=== PATIENT | male | born 1965 | race Caucasian/White ===

== ENCOUNTER 2020-11-12 15:27 | Inpatient (IN) | payer MEDICARE, OTHER ==
[~2020-11-12] VITALS: Ht 165.1 cm; Wt 71.7 kg
--- NOTE | 2020-11-12 15:40 | NUR ---
[facility] AD[facility]ION. PER REPORT THE PATIENT WAS AGGRESIVE TO STAFF AND RESPIDENT. THE PATIENT IS AAO X3. DENIES PAIN. IN ROOM AIR AND DENIES SOB. RESPIRATION REGULAR AND UNLABORED. THE PATIENT IS IN ER BED #12. WILL CONTINUE TO MONITOR.
--- NOTE | 2020-11-12 15:47 | NUR ---
urine collected and taken it to the lab
[2020-11-12 16:01] LABS: BASOPHILS # (AUTO) 0.1 /CMM (0.0-0.2); EOSINOPHILS % (AUTO) 4.5 % (0.0-6.0); HEMATOCRIT 44 % (39-51); HEMOGLOBIN 14.6 g/dL (13.5-17.5); LYMPHOCYTES # (AUTO) 2.8 /CMM (0.8-4.8); LYMPHOCYTES % (AUTO) 33.8 % (20.0-44.0); MEAN CORPUSCULAR HGB CONC 34 g/dl (31.0-36.0); MEAN CORPUSCULAR VOLUME 97 fL (80-96); MONOCYTES # (AUTO) 1.2 /CMM (0.1-1.30); NEUTROPHILS # (AUTO) 3.9 /CMM (1.8-8.9); NEUTROPHILS % (AUTO) 46.7 % (43.0-81.0); PLATELET COUNT (AUTO) 170 /CMM (150-450); RED BLOOD CELL COUNT(AUTO) 4.51 MIL/uL (4.5-6.0); WHITE BLOOD COUNT (AUTO) 8.3 K/uL (4.3-11.0)
[2020-11-12 16:03] LABS: BILIRUBIN,URINE NEGATIVE (NEGATIVE); COLOR,URINE YELLOW (YELLOW); LEUKOCYTE ESTERASE ,URINE NEGATIVE (NEGATIVE); NITRITE, URINE NEGATIVE (NEGATIVE); PROTEIN,URINE NEGATIVE (NEGATIVE); UGLUCOSE NEGATIVE (NEGATIVE); UROBILINOGEN,URINE 0.2 EU/dL (0.2)
[2020-11-12 16:10] LABS: BACTERIA,URINE None seen /HPF (None Seen); MUCUS,URINE Few /LPF (None Seen); SQUAMOUS EPITHELIAL CELL,UR 0-2 /HPF (None Seen); WBC,URINE 0-2 /HPF (0-3)
[2020-11-12 16:13] LABS: CALCIUM, SERUM 9.3 mg/dL (8.5-10.1); CARBON DIOXIDE 33 mmol/L (21-32); CHLORIDE 103 mmol/L (98-107); CREATININE 0.8 mg/dL (0.6-1.3); GLUCOSE 96 mg/dL (74-106); POTASSIUM 3.7 mmol/L (3.5-5.1); SODIUM SERUM 143 mmol/L (136-145); UREA NITROGEN, BLOOD 24 mg/dL (7-18)
[2020-11-12 16:18] LABS: ALANINE AMINOTRANSFERASE 24 U/L (12-78); ALBUMIN 3.4 g/dL (3.4-5.0); ALCOHOL, BLOOD < 3 mg/dL (0-0); ALKALINE PHOSPHATASE 107 U/L (46-116); ASPARTATE AMINOTRANSFERASE 11 U/L (15-37); BILIRUBIN,DIRECT 0.1 mg/dL (0.0-0.2); BILIRUBIN,TOTAL 0.2 mg/dL (0.2-1.0)
[2020-11-12 16:20] LABS: ACETAMINOPHEN 0 ug/ml (10-30)
--- NOTE | 2020-11-12 16:26 | NUR ---
THE PATIENT IS CALM AND COOPERATIVE AT THIS TIME. WILL CONTINUE TO MONITOR.
--- NOTE | 2020-11-12 17:10 | NUR ---
ART, JOCKEY AGENT AT FOR EVAL.
--- NOTE | 2020-11-12 17:27 | NUR ---
BED 216A
[2020-11-12] MEDS ORDERED: TIOT18CA3 IH (17:55)
[2020-11-12] MEDS ORDERED: GUAI-755 PO (17:55)
[2020-11-12] MEDS ORDERED: GABA-532 PO (17:55)
[2020-11-12] MEDS ORDERED: MEMA10TA PO (17:55)
[2020-11-12] MEDS ORDERED: ASCO500C17 PO (17:55)
[2020-11-12] MEDS ORDERED: SERT-438 PO (17:55)
[2020-11-12] MEDS ORDERED: DIVA250T PO (17:55)
[2020-11-12] MEDS ORDERED: MIDO5TAB4 PO (17:55)
[2020-11-12] MEDS ORDERED: ASPI-1420 PO (17:55)
[2020-11-12] MEDS ORDERED: ACET325T53 PO (17:55)
[2020-11-12] MEDS ORDERED: BENZ1TAB7 PO (17:55)
[2020-11-12] MEDS ORDERED: POLY17PO4 PO (17:55)
[2020-11-12] MEDS ORDERED: LACT1CAP26 PO (17:55)
[2020-11-12] MEDS ORDERED: HALO5TAB PO (17:55)
[2020-11-12] MEDS ORDERED: ATOR40TA PO (17:55)
[2020-11-12] MEDS ORDERED: POTA10CA43 PO (17:55)
[2020-11-12] MEDS ORDERED: ALBU0.633 IH (17:55)
[2020-11-12] MEDS ORDERED: MULT-439 PO (17:55)
[2020-11-12] MEDS ORDERED: SIME80TA15 PO (17:55)
[2020-11-12] MEDS ORDERED: DOCU-141 PO (17:55)
[2020-11-12] MEDS ORDERED: ONDA4TAB5 PO (17:55)
[2020-11-12] MEDS ORDERED: THIA100T74 PO (17:55)
[2020-11-12] MEDS ORDERED: LORA-259 PO (17:55)
[2020-11-12] MEDS ORDERED: MELA5TAB PO (17:55)
[2020-11-12] MEDS ORDERED: CETI-90 PO (17:55)
[2020-11-12] MEDS ORDERED: FURO-145 PO (17:55)
[2020-11-12] MEDS ORDERED: LINA145C PO (17:55)
[2020-11-12] MEDS ORDERED: FAMO20TA8 PO (17:55)
[2020-11-12] MEDS ORDERED: DONE10TA44 PO (17:55)
[2020-11-12] MEDS ORDERED: FINA5TAB3 PO (17:55)
[2020-11-12] MEDS ORDERED: MONT10TA22 PO (17:55)
[2020-11-12] MEDS ORDERED: CHOL200013 PO (17:55)
--- NOTE | 2020-11-12 18:05 | NUR ---
PATIENT TRANSFERRED TO ROOM 216A.
[2020-11-12] MEDS ORDERED: ACETAMINOPHEN 325 MG TABLET PO PRN ×2 (18:30)
[2020-11-12] MEDS ORDERED: TEMAZEPAM 7.5 MG CAPSULE PO PRN (18:30)
[2020-11-12] MEDS ORDERED: LORAZEPAM 0.5 MG TABLET PO PRN (18:30)
[2020-11-12] MEDS ORDERED: BLOOD SUGAR DIAGNOSTIC 1 EACH STRIP IN ONE (18:30)
[2020-11-12] MEDS ORDERED: MAGNESIUM HYDROXIDE 30 ML UDC PO PRN (18:30)
[2020-11-12] MEDS ORDERED: POLYETHYLENE GLYCOL 3350 17 GM POWD.PACK PO PRN (18:30)
[2020-11-12] MEDS ORDERED: MAG HYDROX/AL HYDROX/SIMETH 30 ML UDC PO PRN (18:30)
[2020-11-12 18:35] VITALS: BP 147/77
[2020-11-12 18:42] LABS: CHOLESTEROL 140 mg/dL (<200); HDL CHOLESTEROL 44 mg/dL (40-60); LDL 68 mg/dL (0-99); TRIGLYCERIDES 316 mg/dL (30-150)
[2020-11-12 18:43] LABS: VALPROIC ACID 34 ug/mL (50-100)
--- NOTE | 2020-11-12 18:43 | NUR ---
Pt. arrived in the unit via hospital bed from ER and wheeled by ER staff. Pt. brought in to room 216A, contraband done and v/s taken. Dr. Kelly made aware of the admission and with orders. Dr. Jaeger came in the unit and examined the pt. Will endorse to the incoming nurse for the completion of the admission.
[2020-11-12 20:00] VITALS: BP 124/86
[2020-11-12 20:05] VITALS: BP 124/86
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
[2020-11-12] MEDS: ALBUTEROL HALF STRENGTH 1.25 MG/3 ML VIAL.NEB NEB PRN (20:51)
[2020-11-12] MEDS: IPRATROPIUM NEB FS 0.5 MG/2.5 ML AMPUL.NEB IH SCH (20:52)
[2020-11-12] MEDS: DONEPEZIL 5 MG TABLET PO SCH (21:17)
[2020-11-12] MEDS: ATORVASTATIN 40 MG TABLET PO SCH (21:18)
[2020-11-12] MEDS: MONTELUKAST SODIUM (10MG) 10 MG TABLET PO SCH (21:18)
[2020-11-13] MEDS: IPRATROPIUM NEB FS 0.5 MG/2.5 ML AMPUL.NEB IH SCH ×4 (01:30→20:33)
--- NOTE | 2020-11-13 04:15 | NUR ---
[facility] RN NOTE PATIENT IS SLEEPING COMFORTABLY. NO BEHAVIOR EPISODES NOTED.
[2020-11-13 07:04] LABS: ALBUMIN 3.2 g/dL (3.4-5.0); BILIRUBIN,TOTAL 0.3 mg/dL (0.2-1.0); CALCIUM, SERUM 8.9 mg/dL (8.5-10.1); CREATININE 0.7 mg/dL (0.6-1.3); TOTAL PROTEIN, SERUM 6.5 g/dL (6.4-8.2)
[2020-11-13 07:09] LABS: THYROID STIMULATING HORMONE 2.215 uIU/mL (0.358-3.74)
--- NOTE | 2020-11-13 07:12 | NUR ---
RN NOTE: FAMILY NOTIFIED CALLED KRISTIN MCLAUGHLIN (NIECE) AT [phone] & LEFT A MESSAGE REGARDING PATIENT'S ADMISSION AT [facility].
[2020-11-13 08:00] VITALS: BP 133/96
[2020-11-13] MEDS: DOCUSATE SODIUM 100 MG CAPSULE PO SCH ×2 (08:29→16:27)
[2020-11-13] MEDS: MEMANTINE HCL 5 MG TABLET PO SCH ×2 (08:29→16:27)
[2020-11-13] MEDS: ASPIRIN EC 81 MG TABLET.DR PO SCH (08:29)
[2020-11-13] MEDS: MULTIVIT W/MINERALS 1 TAB TABLET PO SCH (08:29)
[2020-11-13] MEDS: THIAMINE HCL 100 MG TABLET PO SCH ×2 (08:29→16:27)
[2020-11-13] MEDS: FUROSEMIDE 20 MG TABLET PO SCH (08:29)
[2020-11-13] MEDS: DIVALPROEX SODIUM 250 MG TABLET.DR PO SCH ×2 (08:29→12:23)
[2020-11-13] MEDS: FINASTERIDE (5 MG) 5 MG TABLET PO SCH (08:29)
[2020-11-13] MEDS: GABAPENTIN 100 MG CAPSULE PO SCH ×3 (08:29→16:27)
[2020-11-13] MEDS: FAMOTIDINE (20 MG) 20 MG TABLET PO SCH ×2 (08:29→16:27)
[2020-11-13] MEDS: CHOLECALCIFEROL 1,000 UNIT TABLET (VIT D3) PO SCH (08:29)
[2020-11-13] MEDS: SIMETHICONE 80 MG TAB.CHEW PO SCH ×3 (08:36→16:33)
[2020-11-13] MEDS ORDERED: BENZTROPINE MESYLATE (1 MG) 1 MG TABLET PO SCH (09:00)
[2020-11-13] MEDS ORDERED: GABAPENTIN 100 MG CAPSULE PO SCH (09:00)
[2020-11-13 09:16] LABS: CREATININE 0.7 mg/dL (0.6-1.3)
[2020-11-13 16:00] VITALS: BP 123/94
[2020-11-13] MEDS: BENZTROPINE MESYLATE (1 MG) 1 MG TABLET PO SCH (16:27)
[2020-11-13] MEDS: HALOPERIDOL 5 MG TABLET PO SCH (16:27)
[2020-11-13 20:04] VITALS: BP 142/95
[2020-11-13] MEDS: DONEPEZIL 5 MG TABLET PO SCH (21:29)
[2020-11-13] MEDS: DIVALPROEX SODIUM 500 MG TABLET.DR PO SCH (21:29)
[2020-11-13] MEDS: ATORVASTATIN 40 MG TABLET PO SCH (21:29)
[2020-11-13] MEDS: MONTELUKAST SODIUM (10MG) 10 MG TABLET PO SCH (21:29)
[2020-11-14] MEDS: IPRATROPIUM NEB FS 0.5 MG/2.5 ML AMPUL.NEB IH SCH ×4 (01:30→20:09)
--- NOTE | 2020-11-14 06:46 | NUR ---
[facility] RN CLOSING NOTES: PATIENT SLEEPING COMFORTABLY IN BED. PATIENT SLEPT 9HR THIS SHIFT. PATIENT WAS MED COMPLIANT THIS SHIFT. NO S/S OF DISTRESS. RESPIRATION EVEN AND UNLABORED WITH EQUAL RISE AND FALL OF THE CHEST ON ROOM AIR. ALL PATIENT CARE NEEDS HAVE BEEN MET ANTICIPATED. BED IN LOWEST POSITION AND LOCKED WITH 2 SIDE RAILS UP. WILL CONTINUE TO MONITOR FOR SAFETY, MOOD AND BEHAVIOR AND ENDORSE TO AM SHIFT.
[2020-11-14 08:00] VITALS: BP 132/93
[2020-11-14] MEDS: GABAPENTIN 100 MG CAPSULE PO SCH ×3 (08:40→17:39)
[2020-11-14] MEDS: CHOLECALCIFEROL 1,000 UNIT TABLET (VIT D3) PO SCH (08:40)
[2020-11-14] MEDS: FAMOTIDINE (20 MG) 20 MG TABLET PO SCH ×2 (08:40→17:39)
[2020-11-14] MEDS: HALOPERIDOL 5 MG TABLET PO SCH ×2 (08:40→17:40)
[2020-11-14] MEDS: THIAMINE HCL 100 MG TABLET PO SCH ×2 (08:40→17:39)
[2020-11-14] MEDS: BENZTROPINE MESYLATE (1 MG) 1 MG TABLET PO SCH ×2 (08:41→17:40)
[2020-11-14] MEDS: ASPIRIN EC 81 MG TABLET.DR PO SCH (08:41)
[2020-11-14] MEDS: DOCUSATE SODIUM 100 MG CAPSULE PO SCH ×2 (08:41→17:40)
[2020-11-14] MEDS: MEMANTINE HCL 5 MG TABLET PO SCH ×2 (08:41→17:40)
[2020-11-14] MEDS: SIMETHICONE 80 MG TAB.CHEW PO SCH ×3 (08:41→17:42)
[2020-11-14] MEDS: DIVALPROEX SODIUM 500 MG TABLET.DR PO SCH ×2 (08:41→21:27)
[2020-11-14] MEDS: FUROSEMIDE 20 MG TABLET PO SCH (08:41)
[2020-11-14] MEDS: MULTIVIT W/MINERALS 1 TAB TABLET PO SCH (08:42)
[2020-11-14] MEDS: FINASTERIDE (5 MG) 5 MG TABLET PO SCH (08:42)
[2020-11-14 16:00] VITALS: BP 125/84
[2020-11-14] MEDS: ALBUTEROL HALF STRENGTH 1.25 MG/3 ML VIAL.NEB NEB PRN (20:10)
[2020-11-14 20:25] VITALS: BP 120/91
[2020-11-14] MEDS: MONTELUKAST SODIUM (10MG) 10 MG TABLET PO SCH (21:27)
[2020-11-14] MEDS: DONEPEZIL 5 MG TABLET PO SCH (21:27)
[2020-11-14] MEDS: ATORVASTATIN 40 MG TABLET PO SCH (21:27)
[2020-11-15] MEDS: IPRATROPIUM NEB FS 0.5 MG/2.5 ML AMPUL.NEB IH SCH ×4 (01:30→20:27)
--- NOTE | 2020-11-15 06:34 | NUR ---
[facility] RN CLOSING NOTES: PATIENT IS CURRENTLY SLEEPING. PATIENT SLEPT 8HR THIS SHIFT. WEEKLY SKIN ASSESSMENT DONE, PICTURES TAKEN AND PLACED IN PATIENT CHART. PATIENT WAS MED COMPLIANT THIS SHIFT. NO S/S OF DISTRESS. RESPIRATION EVEN AND UNLABORED WITH EQUAL RISE AND FALL OF THE CHEST ON ROOM AIR. ALL PATIENT CARE NEEDS HAVE BEEN MET ANTICIPATED. BED IN LOWEST POSITION AND LOCKED WITH 2 SIDE RAILS UP. WILL CONTINUE TO MONITOR FOR SAFETY, MOOD AND BEHAVIOR AND ENDORSE TO AM SHIFT.
[2020-11-15] MEDS: ALBUTEROL HALF STRENGTH 1.25 MG/3 ML VIAL.NEB NEB PRN (07:36)
[2020-11-15 08:00] VITALS: BP 142/87
[2020-11-15] MEDS: DOCUSATE SODIUM 100 MG CAPSULE PO SCH ×2 (08:57→16:54)
[2020-11-15] MEDS: MULTIVIT W/MINERALS 1 TAB TABLET PO SCH (08:57)
[2020-11-15] MEDS: HALOPERIDOL 5 MG TABLET PO SCH ×2 (08:57→16:55)
[2020-11-15] MEDS: BENZTROPINE MESYLATE (1 MG) 1 MG TABLET PO SCH ×2 (08:57→16:54)
[2020-11-15] MEDS: DIVALPROEX SODIUM 500 MG TABLET.DR PO SCH ×2 (08:57→21:14)
[2020-11-15] MEDS: GABAPENTIN 100 MG CAPSULE PO SCH ×3 (08:57→16:55)
[2020-11-15] MEDS: FINASTERIDE (5 MG) 5 MG TABLET PO SCH (08:57)
[2020-11-15] MEDS: FAMOTIDINE (20 MG) 20 MG TABLET PO SCH ×2 (08:58→16:54)
[2020-11-15] MEDS: FUROSEMIDE 20 MG TABLET PO SCH (08:58)
[2020-11-15] MEDS: THIAMINE HCL 100 MG TABLET PO SCH ×2 (08:58→16:54)
[2020-11-15] MEDS: ASPIRIN EC 81 MG TABLET.DR PO SCH (08:58)
[2020-11-15] MEDS: MEMANTINE HCL 5 MG TABLET PO SCH ×2 (08:58→16:54)
[2020-11-15] MEDS: CHOLECALCIFEROL 1,000 UNIT TABLET (VIT D3) PO SCH (09:00)
[2020-11-15] MEDS: SIMETHICONE 80 MG TAB.CHEW PO SCH ×3 (09:02→16:58)
[2020-11-15 16:39] VITALS: BP 114/87
[2020-11-15] MEDS: ATORVASTATIN 40 MG TABLET PO SCH (21:14)
[2020-11-15] MEDS: MONTELUKAST SODIUM (10MG) 10 MG TABLET PO SCH (21:14)
[2020-11-15] MEDS: DONEPEZIL 5 MG TABLET PO SCH (21:15)
[2020-11-16] MEDS: IPRATROPIUM NEB FS 0.5 MG/2.5 ML AMPUL.NEB IH SCH ×4 (01:30→20:45)
[2020-11-16 08:00] VITALS: BP 140/80
[2020-11-16] MEDS: DOCUSATE SODIUM 100 MG CAPSULE PO SCH ×2 (09:00→17:00)
--- NOTE | 2020-11-16 09:19 | NUR ---
Initial Discharge Plan: The pt. currently resides at [facility] [[address] [facility] [address]; [phone]]. Per pt. he would like to return there once ready for discharge. SW called [facility] and spoke to admission who stated that the pt. is welcome to return when ready for discharge. Facility is requesting clinicals, psychiatry notes, behavioral notes when pt. is close to discharge. Noted. SS will follow up accordingly.
[2020-11-16] MEDS: FAMOTIDINE (20 MG) 20 MG TABLET PO SCH ×2 (09:53→17:42)
[2020-11-16] MEDS: THIAMINE HCL 100 MG TABLET PO SCH ×2 (09:53→17:43)
[2020-11-16] MEDS: FUROSEMIDE 20 MG TABLET PO SCH (09:53)
[2020-11-16] MEDS: HALOPERIDOL 5 MG TABLET PO SCH ×2 (09:53→17:42)
[2020-11-16] MEDS: CHOLECALCIFEROL 1,000 UNIT TABLET (VIT D3) PO SCH (09:53)
[2020-11-16] MEDS: DIVALPROEX SODIUM 500 MG TABLET.DR PO SCH ×2 (09:54→21:41)
[2020-11-16] MEDS: MEMANTINE HCL 5 MG TABLET PO SCH ×2 (09:54→17:43)
[2020-11-16] MEDS: ASPIRIN EC 81 MG TABLET.DR PO SCH (09:54)
[2020-11-16] MEDS: BENZTROPINE MESYLATE (1 MG) 1 MG TABLET PO SCH ×2 (09:54→17:42)
[2020-11-16] MEDS: FINASTERIDE (5 MG) 5 MG TABLET PO SCH (09:54)
[2020-11-16] MEDS: SIMETHICONE 80 MG TAB.CHEW PO SCH ×3 (09:59→17:50)
[2020-11-16] MEDS: MULTIVIT W/MINERALS 1 TAB TABLET PO SCH (10:00)
[2020-11-16] MEDS: GABAPENTIN 100 MG CAPSULE PO SCH ×3 (10:00→17:43)
--- NOTE | 2020-11-16 14:39 | NUR ---
Family Contact: Madhavi ([phone]), pts cousin, called the SW and informed the SW that she wants the pt to return to [facility] so that the [facility] can place him in a Skilled Nursing.
[2020-11-16 16:00] VITALS: BP 132/78
[2020-11-16 21:16] VITALS: BP 166/105
[2020-11-16] MEDS: DONEPEZIL 5 MG TABLET PO SCH (21:41)
[2020-11-16] MEDS: ATORVASTATIN 40 MG TABLET PO SCH (21:41)
[2020-11-16] MEDS: MONTELUKAST SODIUM (10MG) 10 MG TABLET PO SCH (21:42)
[2020-11-16] MEDS: ALBUTEROL HALF STRENGTH 1.25 MG/3 ML VIAL.NEB NEB PRN (22:39)
[2020-11-17] MEDS: IPRATROPIUM NEB FS 0.5 MG/2.5 ML AMPUL.NEB IH SCH ×4 (01:03→20:55)
[2020-11-17] MEDS: SIMETHICONE 80 MG TAB.CHEW PO SCH ×3 (08:00→16:44)
[2020-11-17] MEDS: THIAMINE HCL 100 MG TABLET PO SCH ×2 (08:01→16:38)
[2020-11-17] MEDS: ASPIRIN EC 81 MG TABLET.DR PO SCH (08:01)
[2020-11-17] MEDS: BENZTROPINE MESYLATE (1 MG) 1 MG TABLET PO SCH ×2 (08:01→16:38)
[2020-11-17] MEDS: DIVALPROEX SODIUM 500 MG TABLET.DR PO SCH ×2 (08:01→21:10)
[2020-11-17] MEDS: MEMANTINE HCL 5 MG TABLET PO SCH ×2 (08:01→16:38)
[2020-11-17] MEDS: FUROSEMIDE 20 MG TABLET PO SCH (08:01)
[2020-11-17] MEDS: HALOPERIDOL 5 MG TABLET PO SCH ×2 (08:01→16:44)
[2020-11-17] MEDS: FAMOTIDINE (20 MG) 20 MG TABLET PO SCH ×2 (08:01→16:38)
[2020-11-17] MEDS: FINASTERIDE (5 MG) 5 MG TABLET PO SCH (08:01)
[2020-11-17] MEDS: CHOLECALCIFEROL 1,000 UNIT TABLET (VIT D3) PO SCH (08:01)
[2020-11-17] MEDS: MULTIVIT W/MINERALS 1 TAB TABLET PO SCH (08:01)
[2020-11-17] MEDS: DOCUSATE SODIUM 100 MG CAPSULE PO SCH ×2 (08:02→16:44)
[2020-11-17] MEDS: GABAPENTIN 100 MG CAPSULE PO SCH ×3 (08:09→16:38)
[2020-11-17] MEDS: ALBUTEROL HALF STRENGTH 1.25 MG/3 ML VIAL.NEB NEB PRN (13:53)
[2020-11-17 16:00] VITALS: BP 97/73
[2020-11-17 21:07] VITALS: BP 97/60
[2020-11-17] MEDS: MONTELUKAST SODIUM (10MG) 10 MG TABLET PO SCH (21:10)
[2020-11-17] MEDS: ATORVASTATIN 40 MG TABLET PO SCH (21:10)
[2020-11-17] MEDS: DONEPEZIL 5 MG TABLET PO SCH (21:10)
[2020-11-18] MEDS: IPRATROPIUM NEB FS 0.5 MG/2.5 ML AMPUL.NEB IH SCH ×4 (01:30→20:14)
[2020-11-18 08:00] VITALS: BP 126/76
[2020-11-18] MEDS: ALBUTEROL HALF STRENGTH 1.25 MG/3 ML VIAL.NEB NEB PRN (08:00)
[2020-11-18] MEDS: MULTIVIT W/MINERALS 1 TAB TABLET PO SCH (08:01)
[2020-11-18] MEDS: MEMANTINE HCL 5 MG TABLET PO SCH ×2 (08:01→16:23)
[2020-11-18] MEDS: FINASTERIDE (5 MG) 5 MG TABLET PO SCH (08:02)
[2020-11-18] MEDS: GABAPENTIN 100 MG CAPSULE PO SCH ×3 (08:02→16:23)
[2020-11-18] MEDS: THIAMINE HCL 100 MG TABLET PO SCH ×2 (08:02→16:23)
[2020-11-18] MEDS: ASPIRIN EC 81 MG TABLET.DR PO SCH (08:02)
[2020-11-18] MEDS: HALOPERIDOL 5 MG TABLET PO SCH ×2 (08:02→16:23)
[2020-11-18] MEDS: BENZTROPINE MESYLATE (1 MG) 1 MG TABLET PO SCH ×2 (08:02→16:23)
[2020-11-18] MEDS: FAMOTIDINE (20 MG) 20 MG TABLET PO SCH ×2 (08:02→16:23)
[2020-11-18] MEDS: DIVALPROEX SODIUM 500 MG TABLET.DR PO SCH ×2 (08:02→21:46)
[2020-11-18] MEDS: CHOLECALCIFEROL 1,000 UNIT TABLET (VIT D3) PO SCH (08:02)
[2020-11-18] MEDS: FUROSEMIDE 20 MG TABLET PO SCH (08:02)
[2020-11-18] MEDS: DOCUSATE SODIUM 100 MG CAPSULE PO SCH ×2 (08:03→16:24)
[2020-11-18] MEDS: SIMETHICONE 80 MG TAB.CHEW PO SCH ×3 (08:08→16:23)
--- NOTE | 2020-11-18 14:00 | NUR ---
Probable Cause Hearing: Pts [phone] hold was upheld for grave disability.
[2020-11-18 16:00] VITALS: BP 103/76
[2020-11-18 20:59] VITALS: BP 122/73
[2020-11-18] MEDS: DONEPEZIL 5 MG TABLET PO SCH (21:46)
[2020-11-18] MEDS: MONTELUKAST SODIUM (10MG) 10 MG TABLET PO SCH (21:46)
[2020-11-18] MEDS: ATORVASTATIN 40 MG TABLET PO SCH (21:46)
[2020-11-19] MEDS: IPRATROPIUM NEB FS 0.5 MG/2.5 ML AMPUL.NEB IH SCH ×4 (01:04→19:56)
[2020-11-19 08:00] VITALS: BP 117/65
[2020-11-19] MEDS: THIAMINE HCL 100 MG TABLET PO SCH ×2 (08:22→16:04)
[2020-11-19] MEDS: MEMANTINE HCL 5 MG TABLET PO SCH ×2 (08:22→16:04)
[2020-11-19] MEDS: CHOLECALCIFEROL 1,000 UNIT TABLET (VIT D3) PO SCH (08:22)
[2020-11-19] MEDS: MULTIVIT W/MINERALS 1 TAB TABLET PO SCH (08:22)
[2020-11-19] MEDS: FINASTERIDE (5 MG) 5 MG TABLET PO SCH (08:22)
[2020-11-19] MEDS: SIMETHICONE 80 MG TAB.CHEW PO SCH ×3 (08:22→16:04)
[2020-11-19] MEDS: HALOPERIDOL 5 MG TABLET PO SCH ×2 (08:22→16:04)
[2020-11-19] MEDS: ASPIRIN EC 81 MG TABLET.DR PO SCH (08:22)
[2020-11-19] MEDS: FAMOTIDINE (20 MG) 20 MG TABLET PO SCH ×2 (08:22→16:04)
[2020-11-19] MEDS: DIVALPROEX SODIUM 500 MG TABLET.DR PO SCH ×2 (08:22→21:15)
[2020-11-19] MEDS: FUROSEMIDE 20 MG TABLET PO SCH (08:22)
[2020-11-19] MEDS: DOCUSATE SODIUM 100 MG CAPSULE PO SCH ×2 (08:23→16:05)
[2020-11-19] MEDS: BENZTROPINE MESYLATE (1 MG) 1 MG TABLET PO SCH ×2 (08:23→16:04)
[2020-11-19] MEDS: GABAPENTIN 100 MG CAPSULE PO SCH ×3 (08:23→16:04)
--- NOTE | 2020-11-19 09:00 | NUR ---
RN NOTE- PT VISIBLE ON UNIT, INCONGRUENT, BRIGHT AFFECT INTRUSIVE, REQUIRES SPACE BOUNDARIES SET, MED COMPLIANT DIRECTABLE INTERACTIVE
[2020-11-19 16:00] VITALS: BP 122/61
[2020-11-19 19:53] VITALS: BP 113/75
[2020-11-19] MEDS: ALBUTEROL HALF STRENGTH 1.25 MG/3 ML VIAL.NEB NEB PRN (19:55)
[2020-11-19 20:30] VITALS: BP 113/75
[2020-11-19] MEDS: ATORVASTATIN 40 MG TABLET PO SCH (21:47)
[2020-11-19] MEDS: DONEPEZIL 5 MG TABLET PO SCH (21:47)
[2020-11-19] MEDS: MONTELUKAST SODIUM (10MG) 10 MG TABLET PO SCH (21:47)
[2020-11-20] MEDS: IPRATROPIUM NEB FS 0.5 MG/2.5 ML AMPUL.NEB IH SCH ×4 (02:15→20:46)
[2020-11-20 08:00] VITALS: BP 129/82
[2020-11-20] MEDS: HALOPERIDOL 5 MG TABLET PO SCH ×2 (08:19→16:16)
[2020-11-20] MEDS: MULTIVIT W/MINERALS 1 TAB TABLET PO SCH (08:19)
[2020-11-20] MEDS: CHOLECALCIFEROL 1,000 UNIT TABLET (VIT D3) PO SCH (08:19)
[2020-11-20] MEDS: SIMETHICONE 80 MG TAB.CHEW PO SCH ×3 (08:19→16:16)
[2020-11-20] MEDS: FINASTERIDE (5 MG) 5 MG TABLET PO SCH (08:19)
[2020-11-20] MEDS: GABAPENTIN 100 MG CAPSULE PO SCH ×3 (08:19→16:16)
[2020-11-20] MEDS: DIVALPROEX SODIUM 500 MG TABLET.DR PO SCH ×2 (08:19→21:11)
[2020-11-20] MEDS: BENZTROPINE MESYLATE (1 MG) 1 MG TABLET PO SCH ×2 (08:19→16:16)
[2020-11-20] MEDS: ASPIRIN EC 81 MG TABLET.DR PO SCH (08:19)
[2020-11-20] MEDS: FUROSEMIDE 20 MG TABLET PO SCH (08:19)
[2020-11-20] MEDS: THIAMINE HCL 100 MG TABLET PO SCH ×2 (08:19→16:16)
[2020-11-20] MEDS: FAMOTIDINE (20 MG) 20 MG TABLET PO SCH ×2 (08:19→16:16)
[2020-11-20] MEDS: MEMANTINE HCL 5 MG TABLET PO SCH ×2 (08:19→16:16)
[2020-11-20] MEDS: DOCUSATE SODIUM 100 MG CAPSULE PO SCH ×2 (08:20→16:16)
[2020-11-20 16:00] VITALS: BP 100/79
[2020-11-20 19:55] VITALS: BP 143/98
[2020-11-20 20:39] VITALS: BP 143/98
[2020-11-20] MEDS: ALBUTEROL HALF STRENGTH 1.25 MG/3 ML VIAL.NEB NEB PRN (20:46)
[2020-11-20] MEDS: ATORVASTATIN 40 MG TABLET PO SCH (21:32)
[2020-11-20] MEDS: MONTELUKAST SODIUM (10MG) 10 MG TABLET PO SCH (21:32)
[2020-11-20] MEDS: DONEPEZIL 5 MG TABLET PO SCH (21:32)
[2020-11-21] MEDS: IPRATROPIUM NEB FS 0.5 MG/2.5 ML AMPUL.NEB IH SCH ×4 (02:10→20:20)
[2020-11-21 07:43] LABS: BASOPHILS % (AUTO) 0.2 % (0.0-2.0); HEMATOCRIT 43 % (39-51); LYMPHOCYTES # (AUTO) 2.5 /CMM (0.8-4.8); LYMPHOCYTES % (AUTO) 16.7 % (20.0-44.0); MEAN CORPUSCULAR HGB CONC 33 g/dl (31.0-36.0); MEAN CORPUSCULAR VOLUME 97 fL (80-96); MONOCYTES # (AUTO) 0.9 /CMM (0.1-1.30); MONOCYTES % (AUTO) 6.4 % (2.0-12.0); NEUTROPHILS % (AUTO) 74.7 % (43.0-81.0); PLATELET COUNT (AUTO) 137 /CMM (150-450); RED BLOOD CELL COUNT(AUTO) 4.43 MIL/uL (4.5-6.0); WHITE BLOOD COUNT (AUTO) 14.7 K/uL (4.3-11.0)
[2020-11-21 08:00] VITALS: BP 98/74
[2020-11-21 08:28] LABS: ALBUMIN 3.1 g/dL (3.4-5.0); BILIRUBIN,TOTAL 0.6 mg/dL (0.2-1.0); CREATININE 0.8 mg/dL (0.6-1.3); POTASSIUM 4.6 mmol/L (3.5-5.1); TOTAL PROTEIN, SERUM 6.7 g/dL (6.4-8.2)
[2020-11-21] MEDS: DOCUSATE SODIUM 100 MG CAPSULE PO SCH ×2 (09:00→16:56)
[2020-11-21] MEDS: FAMOTIDINE (20 MG) 20 MG TABLET PO SCH ×2 (09:35→16:56)
[2020-11-21] MEDS: ASPIRIN EC 81 MG TABLET.DR PO SCH (09:35)
[2020-11-21] MEDS: THIAMINE HCL 100 MG TABLET PO SCH ×2 (09:35→17:00)
[2020-11-21] MEDS: SIMETHICONE 80 MG TAB.CHEW PO SCH ×3 (09:35→16:56)
[2020-11-21] MEDS: FUROSEMIDE 20 MG TABLET PO SCH (09:35)
[2020-11-21] MEDS: BENZTROPINE MESYLATE (1 MG) 1 MG TABLET PO SCH ×2 (09:35→16:56)
[2020-11-21] MEDS: GABAPENTIN 100 MG CAPSULE PO SCH ×3 (09:35→16:56)
[2020-11-21] MEDS: HALOPERIDOL 5 MG TABLET PO SCH ×2 (09:36→16:56)
[2020-11-21] MEDS: MEMANTINE HCL 5 MG TABLET PO SCH ×2 (09:36→16:56)
[2020-11-21] MEDS: MULTIVIT W/MINERALS 1 TAB TABLET PO SCH (09:36)
[2020-11-21] MEDS: CHOLECALCIFEROL 1,000 UNIT TABLET (VIT D3) PO SCH (09:36)
[2020-11-21] MEDS: DIVALPROEX SODIUM 500 MG TABLET.DR PO SCH ×2 (09:39→21:12)
[2020-11-21] MEDS: FINASTERIDE (5 MG) 5 MG TABLET PO SCH (09:40)
[2020-11-21 16:00] VITALS: BP 112/77
[2020-11-21 20:49] VITALS: BP 97/53
[2020-11-21] MEDS: ATORVASTATIN 40 MG TABLET PO SCH (21:12)
[2020-11-21] MEDS: DONEPEZIL 5 MG TABLET PO SCH (21:12)
[2020-11-21] MEDS: MONTELUKAST SODIUM (10MG) 10 MG TABLET PO SCH (21:12)
[2020-11-22] MEDS: IPRATROPIUM NEB FS 0.5 MG/2.5 ML AMPUL.NEB IH SCH ×4 (01:30→19:58)
--- NOTE | 2020-11-22 06:41 | NUR ---
[facility] RN CLOSING NOTES: PATIENT SLEEPING COMFORTABLY IN BED. PATIENT SLEPT 8HR THIS SHIFT. WEEKLY SKIN ASSESSMENT DONE, SKIN INTACT. NO C/O PAIN. NO S/S OF DISTRESS. RESPIRATION EVEN AND UNLABORED WITH EQUAL RISE AND FALL OF THE CHEST ON ROOM AIR. ALL PATIENT CARE NEEDS HAVE BEEN MET ANTICIPATED. BED IN LOWEST POSITION AND LOCKED WITH SIDE RAILS UP X2. WILL CONTINUE TO MONITOR FOR SAFETY, MOOD AND BEHAVIOR AND ENDORSE TO AM SHIFT.
--- NOTE | 2020-11-22 07:54 | NUR ---
RN NOTES ATROVENT MEDICATION ADMINISTERED BY RT.
[2020-11-22 08:00] VITALS: BP 104/80
[2020-11-22] MEDS: ASPIRIN EC 81 MG TABLET.DR PO SCH (08:35)
[2020-11-22] MEDS: BENZTROPINE MESYLATE (1 MG) 1 MG TABLET PO SCH ×2 (08:35→16:21)
[2020-11-22] MEDS: DOCUSATE SODIUM 100 MG CAPSULE PO SCH ×2 (08:35→16:22)
[2020-11-22] MEDS: GABAPENTIN 100 MG CAPSULE PO SCH ×3 (08:36→16:22)
[2020-11-22] MEDS: DIVALPROEX SODIUM 500 MG TABLET.DR PO SCH ×2 (08:36→21:24)
[2020-11-22] MEDS: SIMETHICONE 80 MG TAB.CHEW PO SCH ×3 (08:36→16:22)
[2020-11-22] MEDS: MEMANTINE HCL 5 MG TABLET PO SCH ×2 (08:36→16:22)
[2020-11-22] MEDS: MULTIVIT W/MINERALS 1 TAB TABLET PO SCH (08:36)
[2020-11-22] MEDS: THIAMINE HCL 100 MG TABLET PO SCH ×2 (08:36→16:22)
[2020-11-22] MEDS: FINASTERIDE (5 MG) 5 MG TABLET PO SCH (08:36)
[2020-11-22] MEDS: FAMOTIDINE (20 MG) 20 MG TABLET PO SCH ×2 (08:36→16:22)
[2020-11-22] MEDS: FUROSEMIDE 20 MG TABLET PO SCH (08:36)
[2020-11-22] MEDS: HALOPERIDOL 5 MG TABLET PO SCH ×2 (08:36→16:22)
[2020-11-22] MEDS: CHOLECALCIFEROL 1,000 UNIT TABLET (VIT D3) PO SCH (08:37)
--- NOTE | 2020-11-22 08:42 | NUR ---
[facility] RN NOTE: MED REFUSAL PT REFUSED TO TAKE [facility]ACE. EXPLAINED RISKS AND BENEFITS X 3. OFFERED X 3. STILL REFUSED. WILL CONTINUE TO MONITOR.
[2020-11-22 08:57] LABS: BASOPHILS % (AUTO) 0.6 % (0.0-2.0); EOSINOPHILS % (AUTO) 8.9 % (0.0-6.0); HEMATOCRIT 41 % (39-51); HEMOGLOBIN 13.7 g/dL (13.5-17.5); LYMPHOCYTES # (AUTO) 1.6 /CMM (0.8-4.8); LYMPHOCYTES % (AUTO) 28.7 % (20.0-44.0); MEAN CORPUSCULAR HGB CONC 33 g/dl (31.0-36.0); MEAN CORPUSCULAR VOLUME 96 fL (80-96); MONOCYTES # (AUTO) 0.4 /CMM (0.1-1.30); MONOCYTES % (AUTO) 7.5 % (2.0-12.0); NEUTROPHILS # (AUTO) 3.1 /CMM (1.8-8.9); NEUTROPHILS % (AUTO) 54.3 % (43.0-81.0); PLATELET COUNT (AUTO) 122 /CMM (150-450); RED BLOOD CELL COUNT(AUTO) 4.28 MIL/uL (4.5-6.0); WHITE BLOOD COUNT (AUTO) 5.7 K/uL (4.3-11.0)
[2020-11-22 09:31] LABS: CALCIUM, SERUM 8.5 mg/dL (8.5-10.1); CREATININE 0.9 mg/dL (0.6-1.3); PHOSPHORUS 3.3 mg/dL (2.5-4.9); POTASSIUM 3.9 mmol/L (3.5-5.1)
[2020-11-22 16:00] VITALS: BP 102/63
--- NOTE | 2020-11-22 16:09 | NUR ---
SNF Contact: [facility] called [facility] [[phone]] and spoke to Jenna in the admissions department about the pt returning to the SNF the following day. She stated that she is going to check if she has a bed for him and will let the SW know.
--- NOTE | 2020-11-22 16:14 | NUR ---
Family Contact: SW called the pts cousin, Madhavi ([phone]), and informed her that the pt is in the process of being discharged either tomorrow or the following day when the facility will have a bed for the pt.
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
--- NOTE | 2020-11-22 17:34 | NUR ---
[facility] RN NOTE: MED REFUSAL PT REFUSED TO TAKE [facility]ACE. EXPLAINED RISKS AND BENEFITS X 3. OFFERED X 3. STILL REFUSED. WILL CONTINUE TO MONITOR.
[2020-11-22] MEDS: ALBUTEROL HALF STRENGTH 1.25 MG/3 ML VIAL.NEB NEB PRN (19:58)
[2020-11-22 20:09] VITALS: BP 104/66
[2020-11-22] MEDS: ATORVASTATIN 40 MG TABLET PO SCH (21:23)
[2020-11-22] MEDS: MONTELUKAST SODIUM (10MG) 10 MG TABLET PO SCH (21:24)
[2020-11-22] MEDS: DONEPEZIL 5 MG TABLET PO SCH (21:24)
[2020-11-23] MEDS: IPRATROPIUM NEB FS 0.5 MG/2.5 ML AMPUL.NEB IH SCH ×4 (01:22→20:25)
[2020-11-23 08:00] VITALS: BP 101/60
[2020-11-23] MEDS: BENZTROPINE MESYLATE (1 MG) 1 MG TABLET PO SCH ×2 (08:18→16:10)
[2020-11-23] MEDS: THIAMINE HCL 100 MG TABLET PO SCH ×2 (08:18→16:10)
[2020-11-23] MEDS: ASPIRIN EC 81 MG TABLET.DR PO SCH (08:18)
[2020-11-23] MEDS: DIVALPROEX SODIUM 500 MG TABLET.DR PO SCH ×2 (08:18→21:05)
[2020-11-23] MEDS: MULTIVIT W/MINERALS 1 TAB TABLET PO SCH (08:18)
[2020-11-23] MEDS: CHOLECALCIFEROL 1,000 UNIT TABLET (VIT D3) PO SCH (08:18)
[2020-11-23] MEDS: MEMANTINE HCL 5 MG TABLET PO SCH ×2 (08:18→16:10)
[2020-11-23] MEDS: FAMOTIDINE (20 MG) 20 MG TABLET PO SCH ×2 (08:18→16:10)
[2020-11-23] MEDS: FUROSEMIDE 20 MG TABLET PO SCH (08:18)
[2020-11-23] MEDS: GABAPENTIN 100 MG CAPSULE PO SCH ×3 (08:18→16:10)
[2020-11-23] MEDS: HALOPERIDOL 5 MG TABLET PO SCH ×2 (08:18→16:10)
[2020-11-23] MEDS: FINASTERIDE (5 MG) 5 MG TABLET PO SCH (08:19)
[2020-11-23] MEDS: DOCUSATE SODIUM 100 MG CAPSULE PO SCH ×2 (08:19→16:11)
[2020-11-23] MEDS: SIMETHICONE 80 MG TAB.CHEW PO SCH ×3 (08:31→16:10)
--- NOTE | 2020-11-23 09:00 | NUR ---
RN NOTE- PT CALM DIRECTABLE MED COMPLIANT INTRUSIVE NEEDS LIMITS SET, PO INTAKE GOOD NO BEHAVIORAL ISSUES THIS MORNING
--- NOTE | 2020-11-23 10:50 | NUR ---
Family Contact: Pts cousin, Madhavi ([phone]), called the SW and stated that she spoke to Tonya the SW at [facility]. She stated that they do not seem to be making it easy for the pt to return to the facility. She is thinking that it might be beneficial to send the pt to a different facility and SW stated that she would speak to the MD and refer accordingly.
--- NOTE | 2020-11-23 11:10 | NUR ---
SNF Referral: SANTOS faxed a referral to [facility] with attn to Claudia to the fax number: [phone].
[2020-11-23 16:00] VITALS: BP 98/72
[2020-11-23 19:58] VITALS: BP 109/64
[2020-11-23 20:57] VITALS: BP 109/64
[2020-11-23] MEDS: ATORVASTATIN 40 MG TABLET PO SCH (21:47)
[2020-11-23] MEDS: DONEPEZIL 5 MG TABLET PO SCH (21:47)
[2020-11-23] MEDS: MONTELUKAST SODIUM (10MG) 10 MG TABLET PO SCH (21:48)
[2020-11-24] MEDS: IPRATROPIUM NEB FS 0.5 MG/2.5 ML AMPUL.NEB IH SCH ×4 (01:30→19:49)
[2020-11-24] MEDS: ALBUTEROL HALF STRENGTH 1.25 MG/3 ML VIAL.NEB NEB PRN (07:44)
[2020-11-24 08:00] VITALS: BP 122/80
[2020-11-24] MEDS: SIMETHICONE 80 MG TAB.CHEW PO SCH ×3 (08:43→16:39)
[2020-11-24] MEDS: MEMANTINE HCL 5 MG TABLET PO SCH ×2 (08:43→16:39)
[2020-11-24] MEDS: DIVALPROEX SODIUM 500 MG TABLET.DR PO SCH ×2 (08:43→21:15)
[2020-11-24] MEDS: BENZTROPINE MESYLATE (1 MG) 1 MG TABLET PO SCH ×2 (08:43→17:07)
[2020-11-24] MEDS: FAMOTIDINE (20 MG) 20 MG TABLET PO SCH ×2 (08:43→16:39)
[2020-11-24] MEDS: GABAPENTIN 100 MG CAPSULE PO SCH ×3 (08:43→16:39)
[2020-11-24] MEDS: MULTIVIT W/MINERALS 1 TAB TABLET PO SCH (08:43)
[2020-11-24] MEDS: CHOLECALCIFEROL 1,000 UNIT TABLET (VIT D3) PO SCH (08:43)
[2020-11-24] MEDS: HALOPERIDOL 5 MG TABLET PO SCH ×2 (08:44→16:39)
[2020-11-24] MEDS: FINASTERIDE (5 MG) 5 MG TABLET PO SCH (08:44)
[2020-11-24] MEDS: DOCUSATE SODIUM 100 MG CAPSULE PO SCH ×2 (08:44→16:40)
[2020-11-24] MEDS: FUROSEMIDE 20 MG TABLET PO SCH (08:44)
[2020-11-24] MEDS: THIAMINE HCL 100 MG TABLET PO SCH ×2 (08:44→16:39)
[2020-11-24] MEDS: ASPIRIN EC 81 MG TABLET.DR PO SCH (08:44)
--- NOTE | 2020-11-24 08:47 | NUR ---
Family Contact: SW called the pts cousin, Madhavi ([phone]), and left her an update stating that the pt is going to be assessed by [facility] today for placement.
--- NOTE | 2020-11-24 14:45 | NUR ---
SNF Contact: Claudia ([phone]) from [facility] contacted the SW and stated that the pt is not being accepted at their facility.
--- NOTE | 2020-11-24 14:56 | NUR ---
SNF Referral: SANTOS faxed a referral to [facility] with attn to OSVALDO and Blake to the fax number: [phone].
[2020-11-24 16:00] VITALS: BP 128/79
[2020-11-24 20:00] VITALS: BP 118/74
[2020-11-24] MEDS: DONEPEZIL 5 MG TABLET PO SCH (21:15)
[2020-11-24] MEDS: MONTELUKAST SODIUM (10MG) 10 MG TABLET PO SCH (21:15)
[2020-11-24] MEDS: ATORVASTATIN 40 MG TABLET PO SCH (21:15)
[2020-11-25] MEDS: IPRATROPIUM NEB FS 0.5 MG/2.5 ML AMPUL.NEB IH SCH ×3 (00:59→13:05)
[2020-11-25 08:00] VITALS: BP 117/72
[2020-11-25] MEDS: DOCUSATE SODIUM 100 MG CAPSULE PO SCH (09:00)
[2020-11-25] MEDS: CHOLECALCIFEROL 1,000 UNIT TABLET (VIT D3) PO SCH (09:12)
[2020-11-25] MEDS: HALOPERIDOL 5 MG TABLET PO SCH (09:12)
[2020-11-25] MEDS: MULTIVIT W/MINERALS 1 TAB TABLET PO SCH (09:12)
[2020-11-25] MEDS: SIMETHICONE 80 MG TAB.CHEW PO SCH ×2 (09:12→12:18)
[2020-11-25] MEDS: FAMOTIDINE (20 MG) 20 MG TABLET PO SCH (09:12)
[2020-11-25] MEDS: GABAPENTIN 100 MG CAPSULE PO SCH ×2 (09:12→12:18)
[2020-11-25] MEDS: FINASTERIDE (5 MG) 5 MG TABLET PO SCH (09:12)
[2020-11-25] MEDS: THIAMINE HCL 100 MG TABLET PO SCH (09:12)
[2020-11-25] MEDS: FUROSEMIDE 20 MG TABLET PO SCH (09:12)
[2020-11-25] MEDS: MEMANTINE HCL 5 MG TABLET PO SCH (09:12)
[2020-11-25] MEDS: DIVALPROEX SODIUM 500 MG TABLET.DR PO SCH (09:13)
[2020-11-25] MEDS: BENZTROPINE MESYLATE (1 MG) 1 MG TABLET PO SCH (09:13)
[2020-11-25] MEDS: ASPIRIN EC 81 MG TABLET.DR PO SCH (09:13)
--- NOTE | 2020-11-25 10:06 | NUR ---
SNF Contact: OSVALDO ([phone]) from [facility] SN[facility] contacted the SW and stated that the pt was accepted to their facility.
--- NOTE | 2020-11-25 11:20 | NUR ---
Family Contact: SW called the pts cousin, Madhavi ([phone]), and informed her that the pt was going to be discharged to [facility] and provided her with the information.
--- NOTE | 2020-11-25 13:37 | NUR ---
Discharge Note: Pt will be discharged to [facility] ([facility]) located at [address] [place] [id number]; ([phone]). Pt will be transported via [facility] (Trip #[id number]) at 3PM. Pts cousin, Kevin ([phone]), was informed of the discharge. Upon discharge, the pt appears to be in a euthymic mood and presented with a calm affect. Pt appears to be alert and oriented x3 (time, place, and self). Pt denies both suicidal and homicidal ideation as well as auditory and visual hallucinations. Pt appears to be ambulatory with an unsteady gait. Pt appears to be disheveled and groomed. Pt will continue to be under the care of psychiatrist, Dr. Kelly, located at [address] [facility], [address] [place] [address]; . Pt will be under the care of web content manager, Dr. Wilde, located at [address] [place] [address]; . Choice of vendor form and multidisciplinary exit care form were done, printed, signed, and given to the patient.
--- NOTE | 2020-11-25 16:09 | NUR ---
GPS/RN-DISCHARGE NOTES RECEIVED T.O DISCHARGE ORDER FROM DR. PARRA ( PSYCHIATRIST) .PATIENT WAS DISCHARGE TO [facility] ([facility]) .PROPERTY UTILIZATION OFFICER ROBERTO ( [employer]) ALSO MADE AWARE OF THE DISCHARGE WITH ORDERS. REPORT WAS GIVEN TO YODIT ( WHEEL ROLLER) PATIENT DID NOT VERBALIZE SI/HI,DENIES VISUAL/AUDITORY HALLUCINATIONS AT THE TIME OF DISCHARGE. AWARE OF THE DISCHARGE. PATIENT LEFT THE UNIT IN STABLE CONDITION,A/OX2 AMBULATORY STEADY GAIT. PER PATIENT'S COUSIN KRISTIN WAS MADE AWARE OF THE DISCHARGE.ALL BELONGINGS WAS GIVEN BACK TO THE PATIENT. MASK WAS PROVIDED. PATIENT WAS PET TECHNOLOGIST BY AMBULANCE VIA GURNEY WITH TWO STAFF ASSIST.
== END 2020-11-25 16:10 | DRG 885 ==
LOC: ER 15:36 → GPS 17:48
PROVIDERS: ADMIT Psychiatry & Neurology Psychiatry
DX: F25.9 Schizoaffective disorder, unspecified (principal); I10 Essential (primary) hypertension; N40.0 Benign prostatic hyperplasia without lower urinary tract symptoms; G80.8 Other cerebral palsy; F32.9 Major depressive disorder, single episode, unspecified; K21.9 Gastro-esophageal reflux disease without esophagitis; D72.829 Elevated white blood cell count, unspecified; Z20.822 Contact with and (suspected) exposure to COVID-19; R09.89 Other specified symptoms and signs involving the circulatory and respiratory systems
CPT/HCPCS: 36415; 71045-TC; 80048-TC; 80053-TC; 80061-TC; 80076-TC; 80164-TC; 81001; 82565-TC; 82962-TC; 83735-TC; 84100-TC; 84443-TC; 85025-TC; 87081-TC; 94799-TC; 97110-TC; 97116-TC; 97530-TC; G0480